=== PATIENT | male | born 1945 | race Caucasian/White ===

== ENCOUNTER 2019-02-08 13:01 | Inpatient (IN) | payer MEDICARE ==
[~2019-02-08] VITALS: Ht 172.7 cm; Wt 70.8 kg
[2019-02-08] MEDS ORDERED: LEVE500T9 PO (13:34)
[2019-02-08] MEDS ORDERED: CLON1TAB PO (13:34)
[2019-02-08 13:56] LABS: BASOPHILS % (AUTO) 0.5 % (0.0-2.0); EOSINOPHILS # (AUTO) 0.1 K/uL (0.0-0.7); EOSINOPHILS % (AUTO) 1.8 % (0.0-7.0); HEMOGLOBIN 10.2 g/dL (12.5-16.3); LYMPHOCYTES # (AUTO) 0.8 K/uL (20.0-40.0); LYMPHOCYTES % (AUTO) 18.5 % (20.5-51.5); MEAN CORPUSCULAR HGB CONC 33 g/dL (32.5-36.3); MEAN CORPUSCULAR VOLUME 79.3 fL (73.0-96.2); MONOCYTES # (AUTO) 0.3 K/uL (2.0-10.0); MONOCYTES % (AUTO) 6.3 % (0.0-11.0); NEUTROPHILS % (AUTO) 72.9 % (38.5-71.5); PLATELET COUNT (AUTO) 197 K/uL (152-348); RED BLOOD CELL COUNT(AUTO) 3.91 MIL/uL (4.06-5.63); WHITE BLOOD COUNT (AUTO) 4.1 K/uL (3.6-10.2)
[2019-02-08 14:04] LABS: *BILIRUBIN,URIN NEGATIVE (NEGATIVE); *BLOOD, URINE NEGATIVE (NEGATIVE); *CLARITY,URINE CLEAR (CLEAR); *COLOR,URINE LIGHT YELLOW (YELLOW); *KETONES,URINE NEGATIVE (NEGATIVE); *UROBILINOGEN,URINE 0.2 E.U./dl (NORMAL); LEUKOCYTE ESTERASE ,URINE NEGATIVE (NEGATIVE); NITRITE, URINE NEGATIVE (NEGATIVE); PH,URINE 5.5 (5.0-8.0); UGLUCOSE NEGATIVE (NEGATIVE)
[2019-02-08 14:12] LABS: ALANINE AMINOTRANSFERASE 14 U/L (16-63); ALKALINE PHOSPHATASE 80 U/L (50-136); ASPARTATE AMINOTRANSFERASE 7 U/L (15-37); BILIRUBIN,DIRECT 0.1 mg/dL (0.0-0.2); BILIRUBIN,TOTAL 0.4 mg/dL (0.2-1.0); CARBON DIOXIDE 22 mmol/L (21-32); CHLORIDE 108 mmol/L (98-107); CREATININE 1.3 mg/dL (0.6-1.3); GLUCOSE 201 mg/dL (74-106); POTASSIUM 4.1 mmol/L (3.5-5.1); TOTAL PROTEIN, SERUM 6.1 g/dL (6.4-8.2); UREA NITROGEN, BLOOD 18 mg/dL (7-18)
[2019-02-08 14:13] LABS: ACETAMINOPHEN < 2.0 ug/mL (10-30); ETHANOL < 3 MG/DL (0-0)
[2019-02-08 14:20] LABS: THYROID STIMULATING HORMONE 1.119 mIU/mL (0.358-3.740)
[2019-02-08 14:22] LABS: *AMPHETAMINE, URINE NEGATIVE (NEGATIVE); *BARBITURATE, URINE NEGATIVE (NEGATIVE); *CANNABINOID, URINE NEGATIVE (NEGATIVE); *COCCAINE, URINE NEGATIVE (NEGATIVE); *OPIATE, URINE NEGATIVE (NEGATIVE); *PHENCYCLIDINE SCREEN,URINE NEGATIVE (NEGATIVE)
[2019-02-08 15:30] VITALS: BP 164/98
[2019-02-08] MEDS ORDERED: MAGNESIUM HYDROXIDE 30 ML LIQUID UDC PO PRN (15:30)
[2019-02-08] MEDS ORDERED: MAG HYDROX/AL HYDROX/SIMETH 30 ML LIQUID UDC PO PRN (15:30)
[2019-02-08 20:00] VITALS: BP 127/64
[2019-02-08] MEDS: TEMAZEPAM 7.5 MG CAPSULE PO PRN (20:18)
[2019-02-08] MEDS: LORAZEPAM 0.5 MG TABLET PO PRN (22:34)
[2019-02-09] MEDS: LORAZEPAM 0.5 MG TABLET PO PRN ×2 (04:45→08:49)
[2019-02-09 07:30] VITALS: BP 168/98
[2019-02-09] MEDS: LEVETIRACETAM 500 MG TABLET PO SCH ×2 (08:49→17:27)
[2019-02-09] MEDS ORDERED: DEXTROSE 50% 50 ML DISP.SYRIN IV PRN (13:15)
[2019-02-09 15:26] VITALS: BP 154/92
[2019-02-09] MEDS: BLOOD SUGAR DIAGNOSTIC 1 EACH STRIP VI SCH ×2 (17:08→20:25)
[2019-02-09] MEDS: DIVALPROEX SPRINKLE 125 MG CAP.SPRINK PO SCH ×2 (17:27→20:54)
[2019-02-09] MEDS: INSULIN REGULAR, HUMAN 300 UNIT/3 ML VIAL SQ PRN ×2 (17:29→20:54)
[2019-02-09 20:05] VITALS: BP 143/98
[2019-02-09] MEDS: TEMAZEPAM 7.5 MG CAPSULE PO PRN (23:26)
[2019-02-10] MEDS: LORAZEPAM 0.5 MG TABLET PO PRN (01:26)
[2019-02-10] MEDS: BLOOD SUGAR DIAGNOSTIC 1 EACH STRIP VI SCH ×4 (06:53→20:48)
[2019-02-10 07:30] VITALS: BP 170/94
[2019-02-10] MEDS: LEVETIRACETAM 500 MG TABLET PO SCH ×2 (08:30→16:28)
[2019-02-10] MEDS: DIVALPROEX SPRINKLE 125 MG CAP.SPRINK PO SCH ×2 (08:30→20:40)
[2019-02-10] MEDS: INSULIN REGULAR, HUMAN 300 UNIT/3 ML VIAL SQ PRN ×4 (08:36→20:50)
[2019-02-10] MEDS: ACETAMINOPHEN 325 MG TABLET PO PRN (09:51)
[2019-02-10] MEDS: HYDROCODONE/APAP 5-325MG TABLET PO PRN (15:45)
[2019-02-10 16:17] VITALS: BP 158/96
[2019-02-10 20:10] VITALS: BP 125/86
[2019-02-10] MEDS: TEMAZEPAM 7.5 MG CAPSULE PO PRN (21:51)
[2019-02-11] MEDS: LORAZEPAM 1 MG TABLET PO PRN ×2 (01:50→20:54)
[2019-02-11] MEDS: ACETAMINOPHEN 325 MG TABLET PO PRN (01:51)
[2019-02-11] MEDS: HYDROCODONE/APAP 5-325MG TABLET PO PRN ×3 (03:03→16:34)
[2019-02-11] MEDS: BLOOD SUGAR DIAGNOSTIC 1 EACH STRIP VI SCH ×5 (06:43→20:54)
[2019-02-11 07:30] VITALS: BP 142/80
[2019-02-11] MEDS: INSULIN REGULAR, HUMAN 300 UNIT/3 ML VIAL SQ PRN ×4 (09:04→20:56)
[2019-02-11] MEDS: DIVALPROEX SPRINKLE 125 MG CAP.SPRINK PO SCH ×2 (09:05→20:53)
[2019-02-11] MEDS: LEVETIRACETAM 500 MG TABLET PO SCH ×2 (09:05→16:07)
[2019-02-11 16:00] VITALS: BP 162/71
[2019-02-11] MEDS: DIVALPROEX 250 MG TABLET.DR PO SCH (16:07)
[2019-02-11 21:57] VITALS: BP 173/75
[2019-02-11] MEDS: TEMAZEPAM 7.5 MG CAPSULE PO PRN (23:13)
[2019-02-12] MEDS: HYDROCODONE/APAP 5-325MG TABLET PO PRN ×2 (01:58→11:51)
[2019-02-12] MEDS: BLOOD SUGAR DIAGNOSTIC 1 EACH STRIP VI SCH ×4 (06:36→20:42)
[2019-02-12 07:30] VITALS: BP 163/89
[2019-02-12] MEDS: INSULIN REGULAR, HUMAN 300 UNIT/3 ML VIAL SQ PRN ×4 (08:11→20:49)
[2019-02-12] MEDS: DIVALPROEX SPRINKLE 125 MG CAP.SPRINK PO SCH ×2 (08:12→20:35)
[2019-02-12] MEDS: LEVETIRACETAM 500 MG TABLET PO SCH ×2 (08:12→16:03)
[2019-02-12] MEDS ORDERED: hydrALAZINE HCL 10 MG TABLET PO PRN (11:15)
[2019-02-12] MEDS: LORAZEPAM 1 MG TABLET PO PRN (15:28)
[2019-02-12] MEDS: DIVALPROEX 250 MG TABLET.DR PO SCH (16:04)
[2019-02-12 16:11] VITALS: BP 144/91
[2019-02-12] MEDS: TEMAZEPAM 7.5 MG CAPSULE PO PRN (22:36)
[2019-02-12 22:44] VITALS: BP 137/91
[2019-02-13] MEDS: HYDROCODONE/APAP 5-325MG TABLET PO PRN ×3 (05:14→20:46)
[2019-02-13] MEDS: BLOOD SUGAR DIAGNOSTIC 1 EACH STRIP VI SCH ×4 (06:37→20:55)
[2019-02-13 07:30] VITALS: BP 165/90
[2019-02-13] MEDS: DIVALPROEX SPRINKLE 125 MG CAP.SPRINK PO SCH ×2 (08:40→20:46)
[2019-02-13] MEDS: LEVETIRACETAM 500 MG TABLET PO SCH ×2 (08:41→16:49)
[2019-02-13] MEDS: INSULIN REGULAR, HUMAN 300 UNIT/3 ML VIAL SQ PRN ×3 (08:44→20:59)
[2019-02-13] MEDS: LORAZEPAM 1 MG TABLET PO PRN (15:28)
[2019-02-13 16:00] VITALS: BP 153/83
[2019-02-13] MEDS: DIVALPROEX 250 MG TABLET.DR PO SCH (16:49)
[2019-02-13 19:52] VITALS: BP 151/81
[2019-02-13] MEDS: TEMAZEPAM 7.5 MG CAPSULE PO PRN (22:55)
[2019-02-14] MEDS: BLOOD SUGAR DIAGNOSTIC 1 EACH STRIP VI SCH ×4 (06:42→20:43)
[2019-02-14] MEDS: HYDROCODONE/APAP 5-325MG TABLET PO PRN ×2 (06:47→14:56)
[2019-02-14 07:30] VITALS: BP 151/87
[2019-02-14] MEDS: LEVETIRACETAM 500 MG TABLET PO SCH ×2 (08:12→16:25)
[2019-02-14] MEDS: DIVALPROEX SPRINKLE 125 MG CAP.SPRINK PO SCH ×2 (08:12→20:33)
[2019-02-14] MEDS: INSULIN REGULAR, HUMAN 300 UNIT/3 ML VIAL SQ PRN ×4 (08:15→20:46)
[2019-02-14 16:00] VITALS: BP 159/88
[2019-02-14] MEDS: DIVALPROEX 250 MG TABLET.DR PO SCH (16:25)
[2019-02-14 19:53] VITALS: BP 135/79
[2019-02-14] MEDS: TEMAZEPAM 7.5 MG CAPSULE PO PRN (22:41)
[2019-02-15] MEDS: BLOOD SUGAR DIAGNOSTIC 1 EACH STRIP VI SCH ×4 (06:35→20:16)
[2019-02-15 07:48] VITALS: BP 150/93
[2019-02-15] MEDS: DIVALPROEX SPRINKLE 125 MG CAP.SPRINK PO SCH ×2 (08:07→20:05)
[2019-02-15] MEDS: LEVETIRACETAM 500 MG TABLET PO SCH ×2 (08:07→17:19)
[2019-02-15] MEDS: HYDROCODONE/APAP 5-325MG TABLET PO PRN ×2 (08:08→20:10)
[2019-02-15] MEDS: INSULIN REGULAR, HUMAN 300 UNIT/3 ML VIAL SQ PRN ×2 (11:57→20:14)
[2019-02-15] MEDS: LORAZEPAM 1 MG TABLET PO PRN (14:02)
[2019-02-15 15:46] VITALS: BP 122/71
[2019-02-15] MEDS: DIVALPROEX 250 MG TABLET.DR PO SCH (17:19)
[2019-02-15 19:48] VITALS: BP 133/88
[2019-02-15] MEDS: TEMAZEPAM 7.5 MG CAPSULE PO PRN (22:49)
[2019-02-16] MEDS: LORAZEPAM 1 MG TABLET PO PRN ×2 (01:40→13:58)
[2019-02-16] MEDS: BLOOD SUGAR DIAGNOSTIC 1 EACH STRIP VI SCH ×4 (06:39→20:05)
[2019-02-16 07:30] VITALS: BP 158/77
[2019-02-16] MEDS: LEVETIRACETAM 500 MG TABLET PO SCH ×2 (08:33→17:02)
[2019-02-16] MEDS: DIVALPROEX SPRINKLE 125 MG CAP.SPRINK PO SCH ×2 (08:34→20:05)
[2019-02-16] MEDS: HYDROCODONE/APAP 5-325MG TABLET PO PRN ×2 (08:39→19:42)
[2019-02-16] MEDS: INSULIN REGULAR, HUMAN 300 UNIT/3 ML VIAL SQ PRN ×2 (11:46→20:09)
[2019-02-16 16:00] VITALS: BP 167/89
[2019-02-16] MEDS: DIVALPROEX 250 MG TABLET.DR PO SCH (17:02)
[2019-02-16 19:48] VITALS: BP 155/69
[2019-02-16] MEDS: TEMAZEPAM 7.5 MG CAPSULE PO PRN (23:35)
[2019-02-17] MEDS: LORAZEPAM 1 MG TABLET PO PRN ×2 (03:21→09:31)
[2019-02-17 07:30] VITALS: BP 175/99
[2019-02-17] MEDS: BLOOD SUGAR DIAGNOSTIC 1 EACH STRIP VI SCH ×4 (08:02→20:34)
[2019-02-17] MEDS: LEVETIRACETAM 500 MG TABLET PO SCH ×2 (08:19→17:04)
[2019-02-17] MEDS: DIVALPROEX SPRINKLE 125 MG CAP.SPRINK PO SCH ×2 (08:20→20:17)
[2019-02-17 10:30] VITALS: BP 144/88
[2019-02-17] MEDS: INSULIN REGULAR, HUMAN 300 UNIT/3 ML VIAL SQ PRN ×2 (12:02→20:36)
[2019-02-17 15:00] VITALS: BP 143/80
[2019-02-17] MEDS: DIVALPROEX 250 MG TABLET.DR PO SCH (17:04)
[2019-02-17] MEDS: HYDROCODONE/APAP 5-325MG TABLET PO PRN (20:27)
[2019-02-17 20:34] VITALS: BP 157/92
[2019-02-17] MEDS: TEMAZEPAM 7.5 MG CAPSULE PO PRN (23:07)
[2019-02-18] MEDS: ACETAMINOPHEN 325 MG TABLET PO PRN (01:26)
[2019-02-18] MEDS: LORAZEPAM 1 MG TABLET PO PRN (01:26)
[2019-02-18] MEDS: BLOOD SUGAR DIAGNOSTIC 1 EACH STRIP VI SCH (06:51)
[2019-02-18 07:30] VITALS: BP 147/76
[2019-02-18 08:16] VITALS: BP 147/76
[2019-02-18] MEDS: DIVALPROEX SPRINKLE 125 MG CAP.SPRINK PO SCH (08:16)
[2019-02-18] MEDS: LEVETIRACETAM 500 MG TABLET PO SCH (08:16)
[2019-02-18] MEDS ORDERED: AMLODIPINE 10 MG TABLET PO SCH (09:00)
== END 2019-02-18 10:15 | disposition home or self-care (01) | DRG 885 ==
LOC: ER 13:01 → GPS 15:05
PROVIDERS: ADMIT Psychiatry & Neurology Psychiatry; ATTEND Registered Nurse
DX: F31.60 Bipolar disorder, current episode mixed, unspecified (principal); E11.65 Type 2 diabetes mellitus with hyperglycemia; E44.1 Mild protein-calorie malnutrition; F03.91 Unspecified dementia, unspecified severity, with behavioral disturbance; I10 Essential (primary) hypertension; G40.909 Epilepsy, unspecified, not intractable, without status epilepticus; G89.29 Other chronic pain; Z79.899 Other long term (current) drug therapy; Z86.19 Personal history of other infectious and parasitic diseases; Z87.81 Personal history of (healed) traumatic fracture; D64.9 Anemia, unspecified; S50.912A Unspecified superficial injury of left forearm, initial encounter; X58.XXXA Exposure to other specified factors, initial encounter; Y92.89 Other specified places as the place of occurrence of the external cause; K44.9 Diaphragmatic hernia without obstruction or gangrene; I49.3 Ventricular premature depolarization
CPT/HCPCS: 36415; 70030-TC; 71045; 80164; 80307; 84443; 85025; 85730; 93005; A4663; G0480; G0480-TC; J1815; J3490